=== PATIENT | male | born 1960 | race Caucasian/White ===

== ENCOUNTER 2021-05-30 20:38 | Emergency (ER) | payer OTHER ==
[~2021-05-30] VITALS: Ht 177.8 cm; Wt 112.9 kg
[2021-05-30 20:39] VITALS: BP 164/110
--- NOTE | 2021-05-30 21:38 | REPVR ---
PROCEDURE INFORMATION: Exam: CT Head Without Contrast Exam date and time: 05/30/2021 9:23 PM Age: 61 years old Clinical indication: Altered mental status/memory loss and dizziness; Confusion or disorientation; Additional info: Dizziness, confusion TECHNIQUE: Imaging protocol: Computed tomography of the head without contrast. Radiation optimization: All CT scans at this facility use at least one of these dose optimization techniques: automated exposure control; mA and/or kV adjustment per patient size (includes targeted exams where dose is matched to clinical indication); or iterative reconstruction. COMPARISON: No relevant prior studies available. FINDINGS: Brain: Sadiq cisterna magna. Otherwise unremarkable. Cerebral ventricles: No ventriculomegaly. Paranasal sinuses: Visualized sinuses are unremarkable. No fluid levels. Mastoid air cells: Visualized mastoid air cells are well aerated. Bones/joints: Unremarkable. No acute fracture. Soft tissues: Unremarkable. IMPRESSION: No acute intracranial findings. Electronically signed by: Yaya Chinchilla On 05/30/2021 21:38:05 PM
--- NOTE | 2021-05-31 05:37 | ECGEPIP ---
[facility] - ED Test Date: 2021-05-30 Pat Name: Jabier Gibson Department: Room: - Gender: Male Lab Assistant: CLAIRE : 1960 Requested By: DANA CINTRON PA-C Order Number: [id number] Reading MD: Dusty Bae Measurements Intervals [place] Rate: 79 P: 38 WA: 168 QRS: -42 QRSD: 88 T: -3 QT: 352 QTc: 403 Interpretive Statements Normal sinus rhythm with sinus arrhythmia Left axis deviation NONSPECIFIC T WAVE ABNORMALITY(S) NO PRIORS FOR COMPARISON Electronically Signed on 05-31-2021 5:36:59 EDT by Dusty Bae
== END 2021-05-30 22:32 | disposition left against medical advice (07) ==
LOC: M ED 20:38
DX: R42 Dizziness and giddiness (principal); R94.31 Abnormal electrocardiogram [ECG] [EKG]; I10 Essential (primary) hypertension; E07.9 Disorder of thyroid, unspecified; K21.9 Gastro-esophageal reflux disease without esophagitis; Z88.0 Allergy status to penicillin; Z87.891 Personal history of nicotine dependence

== ENCOUNTER → 2022-02-03 | Outpatient (REF) | LOC: M PLAIMG 09:54 | PROVIDERS: ATTEND Internal Medicine | DX: M11.261 Other chondrocalcinosis, right knee (principal); M11.262 Other chondrocalcinosis, left knee; M17.2 Bilateral post-traumatic osteoarthritis of knee; M25.70 Osteophyte, unspecified joint; M46.97 Unspecified inflammatory spondylopathy, lumbosacral region ==